=== PATIENT | female | born 1940 | race Caucasian/White ===

== ENCOUNTER 2021-08-23 09:44 | Emergency (ER) | payer MEDICARE, OTHER ==
[~2021-08-23] VITALS: Ht 162.6 cm; Wt 56.2 kg
[~2021-08-23 09:44] MED LIST: ALBU90OI6 INH; ASPI81CH PO; ATOR10 PO; FLAXSEED1000 MG PO; FLUSAL2505 INH; GABA300 PO; LEVSOD75 PO; MONT10T PO; Pataday2.5 ML; Prilosec Otc20 MG; Prinivil10 MG PO; VITAMIN B125000 MCG PO; Ventolin Soln3 ML INH
[2021-08-23 10:41] LABS: Albumin, Blood 2.6 g/dL (3.4-5.0); Albumin/Globulin Ratio 0.7 (0.8-1.8); Bilirubin, Total 1.3 mg/dL (0.1-1.0); Bun/Creatinine Ratio 23.1 (12.0-20.0); Calcium, Blood 9.2 mg/dL (8.5-10.1); Creatinine, Blood 1.08 mg/dL (0.40-1.00); Globulin, Blood 3.6 g/dL (2.2-4.0); Potassium, Blood 3.7 mmol/L (3.5-5.5); Total Protein, Blood 6.2 g/dL (6.4-8.2)
[2021-08-23 10:57] LABS: BASOPHILS ABSOLUTE AUTO 0.07 K/mm3 (0.00-0.23); BASOPHILS PERCENT AUTO 1 % (0-2); EOSINOPHILS ABSOLUTE AUTO 0.11 K/mm3 (0.00-0.68); EOSINOPHILS PERCENT AUTO 1 % (0-6); Hematocrit 37.8 % (33.0-51.0); Hemoglobin 12.2 g/dL (11.5-16.0); IMMATURE GRAN ABSOLUTE AUTO 0.06 K/mm3 (0.00-0.10); IMMATURE GRAN PERCENT AUTO 1 % (0-1); LYMPHOCYTES PERCENT AUTO 10 % (21-46); MONOCYTES ABSOLUTE AUTO 0.75 K/mm3 (0.16-1.47); MONOCYTES PERCENT AUTO 6 % (4-13); Mean Corpuscular HGB 29.4 pg (26.0-34.0); Mean Corpuscular HGB Conc 32.3 g/dL (31.5-36.5); Mean Corpuscular Volume 91 fL (80-100); NEUTROPHILS ABSOLUTE AUTO 10.37 K/mm3 (1.96-9.15); NEUTROPHILS PERCENT AUTO 82 % (41-73); RDW Coefficient Variation 13.4 % (11.7-14.2); RDW Standard Deviation 45.4 fL (35.1-46.3); Red Blood Cell Count 4.15 M/mm3 (3.80-5.20); White Blood Cell Count 12.56 K/mm3 (4.00-11.30)
[2021-08-23 11:17] LABS: Mean Platelet Volume 11.7 fL (9.1-12.4)
[2021-08-23 11:18] LABS: Influenza A, PCR NEGATIVE (NEGATIVE); Influenza B, PCR NEGATIVE (NEGATIVE); Resp Syncytial Virus, PCR NEGATIVE (NEGATIVE); SARS-Cov-2 (COVID-19) PCR, MMC NEGATIVE (NEGATIVE)
[2021-08-23 11:27] LABS: Source, Urine Clean Catch
[2021-08-23 11:31] LABS: Platelet Count 188 K/mm3 (150-400)
[2021-08-23 11:36] LABS: Appearance, Urine Clear (Clear); Bilirubin, Urine Neg (Neg); Blood, Urine 1+ (Neg); Color, Urine Yellow (P-Yellow); Glucose Qualitative, Urine Neg (Neg); Ketones, Urine 1+ (Neg); Leukocyte Esterase, Urine Neg (Neg); Nitrite, Urine Neg (Neg); Protein, Urine 1+ (Neg); Urobilinogen, Urine NORM (Normal)
[2021-08-23 12:07] LABS: Red Blood Cells, Urine 0-2 /hpf (0-2); White Blood Cells, Urine 0-2 /hpf (0-5)
[2021-08-23 12:08] LABS: Bacteria Mod /hpf; Hyaline Casts 0-2 /lpf (0-2); Squamous Epithelial Cells Rare /hpf (Few)
[2021-08-23 12:10] LABS: Granular Casts 0-2 /lpf (0)
[2021-08-23] MEDS ORDERED: AZIT250 PO (12:33)
[2021-08-23] MEDS ORDERED: MECL25 PO (12:33)
== END 2021-08-23 13:28 | disposition home or self-care (01) ==
LOC: ER 09:44
PROVIDERS: Emergency Medicine
DX: E86.0 Dehydration (principal); R42 Dizziness and giddiness; R05.3 Chronic cough; Z20.822 Contact with and (suspected) exposure to COVID-19; Z88.1 Allergy status to other antibiotic agents; Z91.041 Radiographic dye allergy status; Z79.82 Long term (current) use of aspirin; Z79.899 Other long term (current) drug therapy; E03.9 Hypothyroidism, unspecified; J44.9 Chronic obstructive pulmonary disease, unspecified; Z86.73 Personal history of transient ischemic attack (TIA), and cerebral infarction without residual deficits; Z87.891 Personal history of nicotine dependence
CPT/HCPCS: 0241U; 71045; 80053; 81001; 84484; 85025; 87086; 93005; 93010; 99284-25; A9270; J7030

== ENCOUNTER 2021-09-04 10:53 | Inpatient (IN) | payer MEDICARE, OTHER ==
[~2021-09-04] VITALS: Ht 157.5 cm; Wt 50.0 kg
[~2021-09-04 10:53] MED LIST changes: +AZIT250 PO; +MECL25 PO
[2021-09-04 11:22] LABS: BASOPHILS ABSOLUTE AUTO 0.11 K/mm3 (0.00-0.23); BASOPHILS PERCENT AUTO 1 % (0-2); EOSINOPHILS ABSOLUTE AUTO 0.25 K/mm3 (0.00-0.68); EOSINOPHILS PERCENT AUTO 1 % (0-6); Hematocrit 35.8 % (33.0-51.0); Hemoglobin 11.5 g/dL (11.5-16.0); IMMATURE GRAN ABSOLUTE AUTO 0.35 K/mm3 (0.00-0.10); IMMATURE GRAN PERCENT AUTO 2 % (0-1); LYMPHOCYTES ABSOLUTE AUTO 2.01 K/mm3 (0.84-5.20); LYMPHOCYTES PERCENT AUTO 9 % (21-46); MONOCYTES ABSOLUTE AUTO 1.16 K/mm3 (0.16-1.47); MONOCYTES PERCENT AUTO 5 % (4-13); Mean Corpuscular HGB Conc 32.1 g/dL (31.5-36.5); Mean Corpuscular Volume 90 fL (80-100); Mean Platelet Volume 9.9 fL (9.1-12.4); NEUTROPHILS PERCENT AUTO 82 % (41-73); Platelet Count 532 K/mm3 (150-400); RDW Coefficient Variation 13.4 % (11.7-14.2); RDW Standard Deviation 45.1 fL (35.1-46.3); Red Blood Cell Count 3.96 M/mm3 (3.80-5.20); White Blood Cell Count 21.68 K/mm3 (4.00-11.30)
[2021-09-04 11:35] LABS: Albumin/Globulin Ratio 0.6 (0.8-1.8); Bilirubin, Total 0.5 mg/dL (0.1-1.0); Bun/Creatinine Ratio 15.2 (12.0-20.0); Calcium, Blood 9.3 mg/dL (8.5-10.1); Creatinine, Blood 1.05 mg/dL (0.40-1.00); Globulin, Blood 3.6 g/dL (2.2-4.0); Potassium, Blood 3.8 mmol/L (3.5-5.5); Total Protein, Blood 5.6 g/dL (6.4-8.2)
[2021-09-04 13:43] LABS: Influenza A, PCR NEGATIVE (NEGATIVE); Influenza B, PCR NEGATIVE (NEGATIVE); Resp Syncytial Virus, PCR NEGATIVE (NEGATIVE); SARS-Cov-2 (COVID-19) PCR, MMC NEGATIVE (NEGATIVE)
[2021-09-04] MEDS ORDERED: FAMO20 PO (16:55)
--- NOTE | 2021-09-04 19:54 | NUR ---
END OF SHIFT SUMMARY: PATIENT ARRIVED TO UNIT AROUND 1550. PATIENT DISPLAYED SOME SHORTNESS OF BREATH WITH TRANSFERING TO THE BED THAT RESOLVED. PATIENT DENIED SHORTNESS OF BREATH WHEN AT REST IN THE BED. PATIENT CONTINUED TO BE STABLE ON 3L OF O2 VIA NC. PATIENT REPORTED PAIN IN RIGHT BREAST/CHEST REGION, ESPECIALLY WITH COUGH. PATIENT HAS A DRY COUGH. PATIENT REPORTS WEIGHT LOSS OF 17 LBS WITHOUT TRYING RELATED TO HER ILLNESS WITH PNEUMONIA. PATIENT REPORTS THAT SHE HAS A LOSS OF APPETITE AND LOSS OF HER USUAL LEVEL OF ACTIVITY. PATIENT REPORTS SHE NORMALLY IS ACTIVE THROUGHOUT THE DAY.
--- NOTE | 2021-09-05 01:25 | NUR ---
RECEIVED REPORT AND ASSUMED CARE OF PT. SHE IS LYING QUIETLY IN BED WITH [address] @ 3L PM, RESPIRATIONS EVEN. WCTM.
[2021-09-05 04:40] LABS: BASOPHILS ABSOLUTE AUTO 0.09 K/mm3 (0.00-0.23); BASOPHILS PERCENT AUTO 1 % (0-2); EOSINOPHILS ABSOLUTE AUTO 0.43 K/mm3 (0.00-0.68); EOSINOPHILS PERCENT AUTO 4 % (0-6); Hematocrit 31.1 % (33.0-51.0); Hemoglobin 9.7 g/dL (11.5-16.0); IMMATURE GRAN ABSOLUTE AUTO 0.24 K/mm3 (0.00-0.10); IMMATURE GRAN PERCENT AUTO 2 % (0-1); LYMPHOCYTES ABSOLUTE AUTO 1.25 K/mm3 (0.84-5.20); LYMPHOCYTES PERCENT AUTO 11 % (21-46); MONOCYTES PERCENT AUTO 7 % (4-13); Mean Corpuscular HGB 28.7 pg (26.0-34.0); Mean Corpuscular HGB Conc 31.2 g/dL (31.5-36.5); Mean Corpuscular Volume 92 fL (80-100); Mean Platelet Volume 9.8 fL (9.1-12.4); NEUTROPHILS ABSOLUTE AUTO 8.88 K/mm3 (1.96-9.15); NEUTROPHILS PERCENT AUTO 76 % (41-73); Platelet Count 420 K/mm3 (150-400); RDW Coefficient Variation 13.6 % (11.7-14.2); RDW Standard Deviation 46.1 fL (35.1-46.3); Red Blood Cell Count 3.38 M/mm3 (3.80-5.20); White Blood Cell Count 11.69 K/mm3 (4.00-11.30)
[2021-09-05 05:05] LABS: Albumin, Blood 1.7 g/dL (3.4-5.0); Albumin/Globulin Ratio 0.5 (0.8-1.8); Bilirubin, Total 0.3 mg/dL (0.1-1.0); Calcium, Blood 9.4 mg/dL (8.5-10.1); Creatinine, Blood 0.93 mg/dL (0.40-1.00); Globulin, Blood 3.1 g/dL (2.2-4.0); Potassium, Blood 3.8 mmol/L (3.5-5.5); Total Protein, Blood 4.8 g/dL (6.4-8.2)
--- NOTE | 2021-09-05 05:23 | NUR ---
SHIFT SUMMARY: GUS IS A&OX4. VSS, NO ACUTE EVENTS OVERNIGHT, MAINTAINING SATS ON 3 L VIA NC. SHE REPORTS FEELING "A LITTLE BETTER" THIS AM. SHE IS A ONE-PERSON STANDBY ASSIST TO THE BATHROOM, USING THE BEDSIDE COMMODE INSTEAD WHEN SHE FEELS MORE FATIGUED. TOLERATING PO INTAKE WELL, IV TO LEFT AC PATENT, DENIES INCREASING SOB. SHE STATES THAT SHE USED TO TAKE OMEPRAZOLE, BUT TRANSITIONED TO PEPCID AND WOULD PREFER NOT TO TAKE OMEPRAZOLE AND CONTINUE TAKING THE PEPCID IF POSSIBLE. SHE IS CONTINENT OF BLADDER AND BOWEL. SHE IS LYING IN BED WITH HER EYES CLOSED AND EVEN, UNLABORED RESPIRATIONS. CALL LIGHT IN REACH. T[facility]OS[facility] UNTIL REPORT IS GIVEN TO DAY SHIFT RN.
--- NOTE | 2021-09-05 07:31 | NUR ---
ASSUMED CARE: PT AWAKE AND TALKING TO STAFF DURING BEDSIDE REPORT. 3L O2 VIA NC, NSR WITH BBB ON TELE WITH A RATE OF 80. NO ACUTE NEEDS AT THIS TIME
--- NOTE | 2021-09-05 09:03 | NUR ---
PHYSICAL THERAPY AT BEDSIDE
--- NOTE | 2021-09-05 17:20 | NUR ---
SHIFT SUMMARY: PT WORKED WITH PHYSICAL THERAPY THIS SHIFT. TITRATED O2 DOWN TO 2L. PLAN IS TO FINISH IV ABX COURSE PRIOR TO DC. AT BEDSIDE A FEW TIMES TODAY. PT DENIES NEEDS OR CONCERNS AT THIS TIME.
--- NOTE | 2021-09-06 04:53 | NUR ---
SHIFT SUMMARY: PT IS A/OX4. O2: 2L (RA IS HER BASELINE). TELE: SR/73 W/ BBB. SHE WAS A SBA TO THE BSC THIS NOC SHIFT. NO CHANGES TO REPORT AND WE'LL CONTINUE TO MONITOR.
[2021-09-06 05:52] LABS: BASOPHILS PERCENT AUTO 1 % (0-2); EOSINOPHILS ABSOLUTE AUTO 0.38 K/mm3 (0.00-0.68); EOSINOPHILS PERCENT AUTO 4 % (0-6); Hematocrit 31.9 % (33.0-51.0); Hemoglobin 10.1 g/dL (11.5-16.0); IMMATURE GRAN PERCENT AUTO 5 % (0-1); LYMPHOCYTES ABSOLUTE AUTO 0.97 K/mm3 (0.84-5.20); LYMPHOCYTES PERCENT AUTO 11 % (21-46); MONOCYTES ABSOLUTE AUTO 0.87 K/mm3 (0.16-1.47); MONOCYTES PERCENT AUTO 10 % (4-13); Mean Corpuscular HGB 29.1 pg (26.0-34.0); Mean Corpuscular HGB Conc 31.7 g/dL (31.5-36.5); Mean Corpuscular Volume 92 fL (80-100); Mean Platelet Volume 9.8 fL (9.1-12.4); NEUTROPHILS ABSOLUTE AUTO 6.08 K/mm3 (1.96-9.15); NEUTROPHILS PERCENT AUTO 69 % (41-73); Platelet Count 432 K/mm3 (150-400); RDW Coefficient Variation 13.5 % (11.7-14.2); RDW Standard Deviation 45.9 fL (35.1-46.3); Red Blood Cell Count 3.47 M/mm3 (3.80-5.20)
[2021-09-06 06:14] LABS: Anion Gap 6 mmol/L (6-16); Blood Urea Nitrogen 13 mg/dL (8-24); Bun/Creatinine Ratio 15.8 (12.0-20.0); CO2, Blood 27 mmol/L (21-32); Calcium, Blood 9.6 mg/dL (8.5-10.1); Chloride, Blood 109 mmol/L (98-108); Creatinine, Blood 0.82 mg/dL (0.40-1.00); Glomerular Filtration Rate >60 (60-); Glucose, Blood 94 mg/dL (70-99); Potassium, Blood 3.7 mmol/L (3.5-5.5); Sodium, Blood 142 mmol/L (136-145)
--- NOTE | 2021-09-06 13:00 | NUR ---
PT PLEASANT AND COOPERATIVE. PER TELE SINUS RHYTHM IN 70'S. NO MURMURS. COARSE CRACKLES HEARD IN LOWER LOBES. UPPER AND MID LOBES CLEAR. BREATHING IS LABORED AT THIS TIME. ON 2L VIA NASAL CANNULA. BOWEL SOUNDS ACTIVE, STATES NO BOWEL MOVEMENT IN OVER TEN DAYS. MEDICATED PER EMAR. INDEPENDENT TO USE BSC WELL BATHROOM. PT STABLE TO WALK TO RESTROOM. SOB ON EXERTION. CALL LIGHT IN REACH, BED IN LOW POSITION AND CALLS APPROPRIATLY.
--- NOTE | 2021-09-06 15:31 | NUR ---
PT STATES NO BOWEL MOVEMENT IN 10 DAYS. TRIED MEDICATIONS PER EMAR. GIVEN BROWN COW.
--- NOTE | 2021-09-06 18:16 | NUR ---
PT PLEASANT AND COOPERATIVE. DENIES PAIN. A/O X4. D/C TELE PER PROVIDER. REGULAR IN THE 70'S. CRACKLES IN LOWER LUNGS BILATERALLY. UPPER CLEAR. BREATHIS IS LABORED. 3L NASAL CANNULA. PT COUGHING UP THICK SPUTUM. RECIEVED ORDER FOR TESSALON PEARLS AND ROBITUSSIN TO HELP WITH COUGH. PT STATES THOSE REALLY HELPED TO DECREASE HER COUGHING. NO BOWEL MOVEMENT. PT STATES SHE HAS NOT HAD A BOWEL MOVEMENT IN OVER 10 DAYS. ACTIVE BOWEL SOUNDS IN ALL FOUR QUADRANTS. PT MEDICATED PER EMAR. NO RESULT, PT GIVEN BROWN COW. REPORTS SHE CAN FEEL IT MOVING NOW. PT AMBULATES TO RESTROOM TO URINATE. SOB ON EXERTION. BED IN LOW POSITION, CALL LIGHT IN REACH, PT CALLS APPROPRIATLY.
--- NOTE | 2021-09-07 04:59 | NUR ---
SUMMARY NO ISSUES NOTED. PT HAS BEEN SLEEPING T/OUT SHIFT. PT DENIES SOB. PT CURRENTLY SLEEPING AND BREATHING EASY. CALL LIGHT IN REACH.
[2021-09-07 05:22] LABS: BASOPHILS ABSOLUTE AUTO 0.12 K/mm3 (0.00-0.23); BASOPHILS PERCENT AUTO 2 % (0-2); EOSINOPHILS ABSOLUTE AUTO 0.42 K/mm3 (0.00-0.68); EOSINOPHILS PERCENT AUTO 6 % (0-6); Hematocrit 32.3 % (33.0-51.0); Hemoglobin 10.1 g/dL (11.5-16.0); IMMATURE GRAN ABSOLUTE AUTO 0.34 K/mm3 (0.00-0.10); IMMATURE GRAN PERCENT AUTO 5 % (0-1); LYMPHOCYTES PERCENT AUTO 17 % (21-46); MONOCYTES ABSOLUTE AUTO 0.94 K/mm3 (0.16-1.47); MONOCYTES PERCENT AUTO 13 % (4-13); Mean Corpuscular HGB 28.9 pg (26.0-34.0); Mean Corpuscular HGB Conc 31.3 g/dL (31.5-36.5); Mean Corpuscular Volume 92 fL (80-100); Mean Platelet Volume 9.5 fL (9.1-12.4); NEUTROPHILS ABSOLUTE AUTO 4.11 K/mm3 (1.96-9.15); NEUTROPHILS PERCENT AUTO 58 % (41-73); Platelet Count 381 K/mm3 (150-400); RDW Coefficient Variation 13.5 % (11.7-14.2); RDW Standard Deviation 45.6 fL (35.1-46.3); White Blood Cell Count 7.13 K/mm3 (4.00-11.30)
[2021-09-07 05:42] LABS: Bun/Creatinine Ratio 13.2 (12.0-20.0); Calcium, Blood 9.6 mg/dL (8.5-10.1); Creatinine, Blood 0.98 mg/dL (0.40-1.00); Potassium, Blood 4.2 mmol/L (3.5-5.5)
--- NOTE | 2021-09-07 08:56 | NUR ---
PT PLEASANT AND COOPERATIVE. EAGER TO GO HOME. A/O X4. DENIES PAIN. NO TELE. NO MURMURS NOTED. REGULAR IN THE 70'S. LUNGS COARSE AT BASES AND CLEAR IN MID AND UPPER LOBES. BREATHING IS UNLABORED AND EASY. ON 3L VIA NASAL CANNULA. PT REPORTS NO BOWEL MOVEMENT. PER CHART SHE HAD A SMALL BOWEL MOVMENT YESTERDAY. MEDICATED PER EMAR FOR THIS. AMBULATES TO RESTROOM INDEPENDENTLY. CALL LIGHT IN REACH, BED IN LOW POSITION AND CALLS APPROPRIATLY.
--- NOTE | 2021-09-07 10:26 | NUR ---
PT PLEASANT COOP A/O 3 TALKATIVE. STATES FEELS BETTER AND READY TO GO HOME. H/R REG, MURMER NOTED. NO TELE. LUNGS MOSTLY CLEAR, WITH LIGHT COARSNESS NOTED IS PRESENTLY ON 3L O2. RESP EASY, UNLABORED. SOME SOB WITH EXERTION. BT X4. PT STATES NO BM ABOUT 10 DAYS HOWEVER, AIDE SPECIFICALLY STATES DID HAVE SMALL SOFT FORMED STOOL YEST. ABD IS SOFT. NONTENDER. DISCUSSED WITH DR. VELA. BOWELL MEDS PER EMAR. VOIDS PER BATHROOM. INDEPENDANT IN ROOM. NO NEW CONCERNS NOTED. BED IN LOW POSITION, CALL LITE IN REACH, CALLS APPROP
[2021-09-07] MEDS ORDERED: ALBU90OI INH (12:49)
[2021-09-07] MEDS ORDERED: BENZ100A PO (12:52)
[2021-09-07] MEDS ORDERED: VISBIOME 112.51 EACH PO (12:57)
[2021-09-07] MEDS ORDERED: CEFD300 PO (12:57)
--- NOTE | 2021-09-07 14:17 | NUR ---
DISCHARGE REVIEWED WITH PT AND SPOUSE. NO TELE. IV PULLED INTACT. PT WHEELED OUT TO AUTOMOBILE BY NURSE.
== END 2021-09-07 14:22 | disposition home or self-care (01) | DRG 871 ==
LOC: ER 10:53 → MEDS 10:54
PROVIDERS: Emergency Medicine; Family Medicine; Student in an Organized Health Care Education/Training Program; ADMIT Hospitalist
DX: A41.9 Sepsis, unspecified organism (principal); J18.9 Pneumonia, unspecified organism; J96.01 Acute respiratory failure with hypoxia; J44.0 Chronic obstructive pulmonary disease with (acute) lower respiratory infection; K90.41 Non-celiac gluten sensitivity; Z20.822 Contact with and (suspected) exposure to COVID-19; Z66 Do not resuscitate; R07.81 Pleurodynia; E03.9 Hypothyroidism, unspecified; Z86.73 Personal history of transient ischemic attack (TIA), and cerebral infarction without residual deficits; Z88.1 Allergy status to other antibiotic agents; Z91.041 Radiographic dye allergy status; Z79.899 Other long term (current) drug therapy; Z79.82 Long term (current) use of aspirin; Z90.49 Acquired absence of other specified parts of digestive tract; Z90.89 Acquired absence of other organs; Z85.72 Personal history of non-Hodgkin lymphomas; Z90.710 Acquired absence of both cervix and uterus; Z87.891 Personal history of nicotine dependence
CPT/HCPCS: 0241U; 36415; 71045; 80048; 80053; 83605; 83880; 84145; 84484; 85025; 87040; 87070; 87205; 87449; 93005; 93010; 94640; 94664; 94760; 94761; 94762; 96365; 96366; 96372; 96374; 96375; 96376; 97110; 97116; 97162; 97530; 99285-25; A9270; G0378; J0456; J0696; J1650; J7030; J7050

== ENCOUNTER → 2022-05-05 | Outpatient (CLI) | payer MEDICARE, OTHER ==
[~2022-05-05] MED LIST changes: +ALBU90OI INH; +BENZ100A PO; +CEFD300 PO; +FAMO20 PO; +VISBIOME 112.51 EACH PO
== END ==
LOC: LAB 13:32 → LAB SHORT 13:32
DX: R05.9 Cough, unspecified (principal)
CPT/HCPCS: 87070; 87205

== ENCOUNTER → 2022-07-10 | Outpatient (CLI) | payer MEDICARE, OTHER | END | disposition home or self-care (01) | LOC: LAB 08:30 → LAB SHORT 08:30 | DX: J44.1 Chronic obstructive pulmonary disease with (acute) exacerbation (principal); J98.4 Other disorders of lung | CPT/HCPCS: 87070; 87205 ==

== ENCOUNTER 2022-08-12 08:02 | Day surgery (SDC) | payer MEDICARE, OTHER ==
[~2022-08-12] VITALS: Ht 157.5 cm; Wt 51.6 kg
[2022-08-12] MEDS ORDERED: FLUTICASONE-SA1 EAC1 INH (09:05)
--- NOTE | 2022-08-12 09:42 | NUR ---
08/12/22 0942 Shabnam [place] [address] [place] [address]
== END 2022-08-12 10:35 | disposition home or self-care (01) ==
LOC: ORSCSDS 08:02
PROVIDERS: Student in an Organized Health Care Education/Training Program
PROC: 08RK3JZ Replacement of Left Lens with Synthetic Substitute, Percutaneous Approach (ICD-10-PCS; principal; 2022-08-12 09:30)
DX: H25.12 Age-related nuclear cataract, left eye (principal); H21.81 Floppy iris syndrome; Z96.1 Presence of intraocular lens; I10 Essential (primary) hypertension; H35.30 Unspecified macular degeneration; Z85.72 Personal history of non-Hodgkin lymphomas; Z86.73 Personal history of transient ischemic attack (TIA), and cerebral infarction without residual deficits; J45.909 Unspecified asthma, uncomplicated; Z79.82 Long term (current) use of aspirin; Z79.899 Other long term (current) drug therapy
CPT/HCPCS: J2001; J2250; J3010; J7040; V2632

== ENCOUNTER → 2022-09-05 | Outpatient (CLI) | payer MEDICARE, OTHER ==
[~2022-09-05] MED LIST changes: +FLUTICASONE-SA1 EAC1 INH
== END | disposition home or self-care (01) ==
LOC: LAB 09:10 → LAB SHORT 09:10
DX: J44.1 Chronic obstructive pulmonary disease with (acute) exacerbation (principal)
CPT/HCPCS: 87070; 87077; 87186; 87205

== ENCOUNTER → 2022-10-23 | Outpatient (CLI) | payer MEDICARE, OTHER | END | disposition home or self-care (01) | LOC: LAB 10:23 → LAB SHORT 10:23 | DX: J44.1 Chronic obstructive pulmonary disease with (acute) exacerbation (principal) | CPT/HCPCS: 87070; 87205 ==

== ENCOUNTER → 2023-04-20 | Outpatient (CLI) | payer MEDICARE, OTHER | LOC: LAB SHORT 11:24 → LAB 11:24 | DX: J98.4 Other disorders of lung (principal) | CPT/HCPCS: 87070; 87077; 87186; 87205 ==